=== PATIENT | female | born 1960 | race Caucasian/White ===

== ENCOUNTER 2019-05-17 12:13 | Emergency (ER) | payer BC ==
[~2019-05-17] VITALS: Ht 157.5 cm; Wt 132.2 kg
[2019-05-17] MEDS ORDERED: IRON27TA2 PO (12:48)
[2019-05-17] MEDS ORDERED: MULTCAP PO (12:48)
[2019-05-17] MEDS ORDERED: GNP250TA9 PO (12:48)
[2019-05-17 14:15] LABS: BASO % 0.6 % (0.0-1.0); EOS # 0.2 10^3/uL (0.0-0.5); EOS % 3.4 % (0.0-3.0); HEMATOCRIT 40.2 % (36.0-47.0); HEMOGLOBIN 12.7 g/dl (12.0-15.5); LYMPH # 1.5 10^3/uL (1.5-5.0); LYMPH % 21.8 % (24.0-44.0); MEAN CORPUSCULAR HEMOGLOBIN 28.8 pg (27.0-33.0); MEAN CORPUSCULAR HGB CONC 31.6 g/dl (32.0-36.5); MEAN CORPUSCULAR VOLUME 91.2 fl (80.0-96.0); MONO # 0.4 10^3/uL (0.0-0.8); MONO % 5.7 % (0.0-5.0); NEUTROPHILS # 4.6 10^3/uL (1.5-8.5); NEUTROPHILS % 68.4 % (36.0-66.0); PLATELET COUNT, AUTOMATED 298 10^3/uL (150-450); RED BLOOD COUNT 4.41 10^6/uL (4.00-5.40); WHITE BLOOD COUNT 6.7 10^3/uL (4.0-10.0)
[2019-05-17 14:23] LABS: ALBUMIN 3.2 GM/DL (3.2-5.2); ALT/SGPT 21 U/L (12-78); BILIRUBIN,DIRECT 0.1 MG/DL (0.0-0.2); BILIRUBIN,TOTAL 0.6 MG/DL (0.2-1.0); BLOOD UREA NITROGEN 20 MG/DL (7-18); C REACTIVE PROTEIN QUANTITATIV 4.32 MG/DL (0.00-0.30); CALCIUM LEVEL 8.1 MG/DL (8.5-10.1); CARBON DIOXIDE LEVEL 29 MEQ/L (21-32); CHLORIDE LEVEL 107 MEQ/L (98-107); CK-MB VALUE MASS 1.8 NG/ML (<3.6); CPK CREATINE PHOSPHOKINASE 44 U/L (26-192); CREATININE FOR GFR 0.75 MG/DL (0.55-1.30); GLOMERULAR FILTRATION RATE > 60.0 (>51); GLUCOSE, FASTING 88 MG/DL (70-100); MB/CK RELATIVE INDEX 4.09 (< OR =4); NT-PRO BNP 85 PG/ML (<125); POTASSIUM SERUM 3.9 MEQ/L (3.5-5.1); SODIUM LEVEL 140 MEQ/L (136-145); TOTAL PROTEIN 7.4 GM/DL (6.4-8.2); TROPONIN I < 0.02 NG/ML (< 0.10)
[2019-05-17 14:51] LABS: ERYTHROCYTE SEDIMENTATION RATE 52 mm/hr (0-30)
[2019-05-17 15:45] VITALS: BP 189/95
--- NOTE | 2019-05-17 15:57 | REP ---
Duplex extremity venous ultrasound: Bilateral lower extremity. History: Rule out DVT. Findings: Exam quality was somewhat inhibited by patient body habitus. The deep veins are anechoic and fully compressible from the groin to the popliteal fossa in the left and right lower extremity. Color flow imaging is homogeneous. Spectral Doppler interrogation demonstrates intact respiratory variation in flow and normal manual augmentation of flow. There is no evidence of deep vein thrombosis. Impression: Negative bilateral lower extremity duplex venous ultrasound. No evidence of deep vein thrombosis. Electronically Signed by Jacky Wu MD 05/17/2019 03:49 P
[2019-05-17] MEDS ORDERED: BACT800T5 PO (16:27)
[2019-05-17] MEDS ORDERED: LASI20TA3 PO (16:27)
== END 2019-05-17 16:35 | disposition home or self-care (01) ==
LOC: M ED 12:13
DX: L03.115 Cellulitis of right lower limb (principal); L03.116 Cellulitis of left lower limb; R60.0 Localized edema

== ENCOUNTER 2019-07-31 17:36 | Observation (INO) | payer BC ==
[~2019-07-31] VITALS: Ht 157.5 cm; Wt 133.7 kg
[~2019-07-31 17:36] MED LIST: BACT800T5 PO; GNP250TA9 PO; IRON27TA2 PO; LASI20TA3 PO; MULTCAP PO
[2019-07-31] MEDS ORDERED: NS 1,000 ML IV ONE (18:15)
[2019-07-31] MEDS ORDERED: CEFTAROLINE FOSAMIL 600 MG in D5W MINI-BAG PLUS 50 ML IV ONE (18:30)
[2019-07-31 18:45] LABS: BASO % 0.5 % (0.0-1.0); EOS # 0.1 10^3/uL (0.0-0.5); EOS % 1.5 % (0.0-3.0); HEMATOCRIT 39.1 % (36.0-47.0); HEMOGLOBIN 12.1 g/dl (12.0-15.5); LYMPH # 1.8 10^3/uL (1.5-5.0); MEAN CORPUSCULAR HEMOGLOBIN 27.8 pg (27.0-33.0); MEAN CORPUSCULAR HGB CONC 30.9 g/dl (32.0-36.5); MEAN CORPUSCULAR VOLUME 89.9 fl (80.0-96.0); MONO # 0.5 10^3/uL (0.0-0.8); MONO % 5.7 % (0.0-5.0); NEUTROPHILS # 6.3 10^3/uL (1.5-8.5); PLATELET COUNT, AUTOMATED 397 10^3/uL (150-450); RED BLOOD COUNT 4.35 10^6/uL (4.00-5.40); WHITE BLOOD COUNT 8.8 10^3/uL (4.0-10.0)
[2019-07-31] MEDS ORDERED: ALEV220T22 PO (18:52)
[2019-07-31] MEDS ORDERED: FERR325T82 PO (18:52)
[2019-07-31] MEDS ORDERED: FURO20TA2 PO (18:52)
[2019-07-31 18:56] LABS: INR 1.13; PROTHROMBIN TIME 14.2 SECONDS (11.8-14.0)
[2019-07-31 19:05] LABS: ALBUMIN 2.8 GM/DL (3.2-5.2); ALT/SGPT 27 U/L (12-78); BILIRUBIN,DIRECT < 0.1 MG/DL (0.0-0.2); BILIRUBIN,TOTAL 0.5 MG/DL (0.2-1.0); BLOOD UREA NITROGEN 28 MG/DL (7-18); C REACTIVE PROTEIN QUANTITATIV 6.21 MG/DL (0.00-0.30); CALCIUM LEVEL 8.5 MG/DL (8.5-10.1); CARBON DIOXIDE LEVEL 27 MEQ/L (21-32); CHLORIDE LEVEL 104 MEQ/L (98-107); CREATININE FOR GFR 0.78 MG/DL (0.55-1.30); GLOMERULAR FILTRATION RATE > 60.0 (>51); GLUCOSE, FASTING 106 MG/DL (70-100); POTASSIUM SERUM 4.9 MEQ/L (3.5-5.1); SODIUM LEVEL 138 MEQ/L (136-145); TOTAL PROTEIN 7.6 GM/DL (6.4-8.2)
--- NOTE | 2019-07-31 20:13 | REPVR ---
PROCEDURE INFORMATION: Exam: US Duplex Lower Extremity Veins Exam date and time: 07/31/2019 8:07 PM Age: 59 years old Clinical indication: Edema, localized; Lower extremity, bilateral; Additional info: R/O dvt TECHNIQUE: Imaging protocol: Real-time duplex ultrasound of the Lower Extremities with 2-D donaldson scale, color Doppler flow and spectral waveform analysis with image documentation. Complete exam focused on the bilateral lower extremity veins. COMPARISON: US Duplex, Ext LOWER veins, bilat 05/17/2019 3:19 PM FINDINGS: Right deep veins: Unremarkable. The common femoral, femoral, proximal profunda femoral and popliteal veins are patent without thrombus. Normal Doppler waveforms. Normal compressibility and/or augmentation response. Right superficial veins: Saphenofemoral junction is patent without thrombus. Left deep veins: Unremarkable. The common femoral, femoral, proximal profunda femoral and popliteal veins are patent without thrombus. Normal Doppler waveforms. Normal compressibility and/or augmentation response. Left superficial veins: Saphenofemoral junction is patent without thrombus. Soft tissues: Large left inguinal lymph node measures 4 x 1.5 x 3.1 cm demonstrating a normal fatty hilum consistent with an inflammatory benign lymph node. Marked bilateral lower leg edema. IMPRESSION: 1. No acute findings. No evidence of deep vein thrombosis. 2. Inflammatory lymph nodes left inguinal region. 3. Bilateral marked lower leg edema. Electronically signed by: Gil Dunlap On 07/31/2019 20:13:20 PM
[2019-07-31 20:20] LABS: ERYTHROCYTE SEDIMENTATION RATE 68 mm/hr (0-30)
--- NOTE | 2019-07-31 20:56 | HPEPDOC ---
[facility] Medical History & Physical Date of Admission Jul 31, 2019 Date of Service: Jul 31, 2019 Other Provider NO PCP Attending Physician: ALANIS SHEPHERD MD History and Physical TIME OF SERVICE: 10 PM CHIEF COMPLAINT: Leg pain HISTORY OF PRESENT ILLNESS: This is a 59-year-old female who presents with complaints of left lower extremity 4 /10 "tender" left leg pain that extends from the knee to the shins. She has had multiple episodes of bilateral lower extremity cellulitis since May. Despite taking several courses of antibiotics the left lower extremity swelling has not completely resolved. She completed her last course of antibiotics about a week ago, but has noticed worsening redness and swelling of the left lower extremity with weeping from the skin. Denies having nausea, vomiting, fever or chills. Does not have a PCP. REVIEW OF SYSTEMS: 12 point review of systems negative except as listed in HPI PAST MEDICAL/ SURGICAL HISTORY: She denies any prior medical history She had a resection of a cyst on her back several years ago SOCIAL HISTORY: She does not smoke FAMILY HISTORY: Diabetes ALLERGIES: Please see below. HOME MEDICATIONS: Please see below. PHYSICAL EXAMINATION: VITAL SIGNS: Please see below. GEN: Obese/ well developed/ NAD INTEGUMENT: Left lower extremity has redness and thickening of the subcutaneous skin extending from the posterior aspect of the left upper leg all the way down to the ankles. There are also areas containing yellow crusted discharge. The right lower extremity also has redness, and swelling of the subcutaneous skin from the mid cutler to the ankle. HEENT: NCAT / mucus membranes moist and pink CVS: RRR/NMRG LUNGS: lungs are clear to auscultation bilaterally on room air MSK/EXTREMITIES: range of motion . The left ankle is limited due to swelling and pain NEURO: CN 2-12 are grossly intact / speech is not dysarthric PSYCH: alert and oriented to person place and time/ able to understand and follow all commands LABORATORY DATA: See below. IMAGING: Bilateral ultrasound is negative for DVT MICROBIOLOGY: Please see below. ASSESSMENT: Ms. Lloyd is a 59-year-old female the past medical history of morbid obesity will be admitted for management of bilateral lower extremity redness, pain & swelling possibly due to cellulitis. PLAN: 1. BLE Cellulitis ? Predisposing factors is morbid obesity. The pain, redness and swelling is worse at the left lower extremity than the right. The duplex negative for DVT. The ESR and CRP are elevated. The only SIRS criterial she had was a HR of 104 She received Ceftaroline in the ER ALT-70 Score = 1 point = reassess / >83.3% likelihood of pseudocellulitis Plan: Admit to medical floor/fall precautions / elevate legs / acetaminophen for pain / wound care / PT eval to determine if it is still safe for her to continue to use her cane and walker to ambulate / since her WBC # is wnl and her ALT-70 Score points towards a diagnosis of pseudocellulitis, we will switch to PO Bactrim in the morning / it is unusual to have bilateral lower extremity cellulitis, but the skin on the left leg is weeping and ozzing pus and appears to be infected, there is a possibility that she may also have venous insufficiency therefore the day time team may consider consulting dermatology in the morning 2. Morbid Obesity BMI 61.4 Plan: She has a PCP she can follow-up with them for the STOP BANG questionnaire, oven attendant consult & referral for Bariatric Surgeon / recommend cardiovascular exercise for 40 min 4-5 days a week DVT PROPHYLAXIS: Lovenox DISPOSITION: Likely home after less than 2 midnight stay Vital Signs Vital Signs Date Time Temp Pulse Resp B/P (MAP) Pulse Ox O2 Delivery O2 Flow Rate FiO2 07/31/19 18:33 95 20 122/76 (91) 100 07/31/19 17:37 98.0 Room Air Laboratory Data Labs 24H Laboratory Tests 2 07/31/19 18:20: Lactic Acid Level 0.7 07/31/19 18:21: Immature Granulocyte % (Auto) 0.3, Neutrophils (%) (Auto) 72.0H, Lymphocytes (%) (Auto) 20.0L, Monocytes (%) (Auto) 5.7H, Eosinophils (%) (Auto) 1.5, Basophils (%) (Auto) 0.5, Neutrophils # (Auto) 6.3, Lymphocytes # (Auto) 1.8, Monocytes # (Auto) 0.5, Eosinophils # (Auto) 0.1, Basophils # (Auto) 0.0, Nucleated Red Blood Cells % (auto) 0.0, Erythrocyte Sedimentation Rate 68H, Prothrombin Time 14.2H, Prothromb Time International Ratio 1.13, Anion Gap 7L, Glomerular Filtration Rate > 60.0, Calcium Level 8.5, Total Bilirubin 0.5, Direct Bilirubin < 0.1, Aspartate Amino Transf (AST/SGOT) 27, Alanine Aminotransferase (ALT/SGPT) 27, Alkaline Phosphatase 124H, C-Reactive Protein, Quantitative 6.21H, Total Protein 7.6, Albumin 2.8L, Albumin/Globulin Ratio 0.58L CBC/BMP Laboratory Tests 07/31/19 18:21 Microbiology Microbiology 07/31/19 Gram Stain, Received Pending 07/31/19 Wound Culture, Received Pending 07/31/19 Blood Culture, Received Pending 07/31/19 Blood Culture, Received Pending Home Medications Scheduled Ferrous Sulfate (Iron) 325 Mg Tablet, 325 MG PO DAILY Furosemide (Furosemide) 20 Mg Tablet, 20 MG PO DAILY Magnesium Oxide (Magnesium) 250 Mg Tablet, 250 MG PO DAILY Multivitamin (Multivitamins) 1 Each Capsule, 1 CAP PO DAILY Scheduled PRN Naproxen Sodium (Aleve) 220 Mg Tablet, 220 MG PO BID PRN for PAIN Allergies Coded Allergies: No Known Allergies (Unverified , 05/17/19) A-FIB/CHADSVASC A-FIB History Current/History of A-Fib/PAF?: No Current PO Anticoag Therapy: No ALANIS SHEPHERD MD Jul 31, 2019 20:56
[2019-07-31 21:48] VITALS: BP 175/76
[2019-07-31] MEDS ORDERED: ACETAMINOPHEN 650MG ER TAB (TYLENOL ARTHRITIS) PO PRN (22:15)
[2019-08-01 06:00] VITALS: BP 161/78
[2019-08-01] MEDS ORDERED: ENOXAPARIN 40 MG/0.4 ML SYRINGE (J1650) SC SCH (09:00)
[2019-08-01] MEDS ORDERED: BACTRIM 160MG/800MG DS TAB PO SCH (09:00)
[2019-08-01] MEDS ORDERED: SULF1TAB93 PO (10:27)
--- NOTE | 2019-08-01 11:43 | DS.PDOC ---
Discharge Summary General Date of Admission Jul 31, 2019 at 17:37 Date of Discharge August 01, 2019 Attending Physician: MARICHUY HARRY MD Discharge Summary PROCEDURES PERFORMED DURING STAY: [None]. ADMITTING DIAGNOSES: 1. Lower extremity pain DISCHARGE DIAGNOSES: 1. Chronic venous stasis of lower extremities and resulting ulcerations COMPLICATIONS/CHIEF COMPLAINT: Bilateral Lower Extremity Edema. HISTORY OF PRESENT ILLNESS: This is a 59-year-old female who presents with complaints of left lower extremity 4 /10 "tender" left leg pain that extends from the knee to the shins. She has had multiple episodes of bilateral lower extremity cellulitis since May. Despite taking several courses of antibiotics the left lower extremity swelling has not completely resolved. She completed her last course of antibiotics about a week ago, but has noticed worsening redness and swelling of the left lower extremity with weeping from the skin. Denies having nausea, vomiting, fever or chills. Does not have a PCP. HOSPITAL COURSE: Patient was admitted and worked up for possible bilateral cellulitis given pain and erythema in lower extremities prompting several recent visits to urgent care. She underwent duplex ultrasound of bilateral lower extremities which was found to be normal with no evidence of DVT. She was started on oral Bactrim for empiric cellulitis treatment. The following morning she reported only minimal improvement in lower extremity pain. She was advised that she will need to establish with a PCP and will be referred to wound care clinic. She will be sent home on 14 days of oral Bactrim and and wound care supplies to wrap her legs herself until she can be seen by wound care clinic. DISCHARGE MEDICATIONS: Please see below. ALLERGIES: Please see below. PHYSICAL EXAMINATION ON DISCHARGE: VITAL SIGNS: Please see below. GENERAL APPEARANCE: morbidly obese, Laying in bed, appears stated age, no acute distress, calm, cooperative HEENT: EOMI, PERRLA, neck is supple with no thyromegaly or lymphadenopathy RESPIRATORY: Lungs are clear to auscultation bilaterally with no adventitious breath sounds appreciated CARDIOVASCULAR: no JVD, RRR,no murmurs/rubs/gallops ABDOMEN: Soft, nontender to palpation in all four quadrants, no masses/organomegaly EXTREMITIES: R lower extremity has evidence of venous stasis with several small ulcerations on the anterior and posterior leg. L lower extremity is wrapped in gauze that is completely saturated in extracellular fluid and is malodorous NEUROLOGICAL: No obvious focal deficits PSYCHIATRIC: normal mood/affect Skin: No rashes or ulcers. LN: No significant cervical or inguinal lymphadenopathy LABORATORY DATA: Please see below. IMAGING: DUPLEX US BILATERAL LE VEINS (07/31/19): IMPRESSION: 1. No acute findings. No evidence of deep vein thrombosis. 2. Inflammatory lymph nodes left inguinal region. 3. Bilateral marked lower leg edema. PROGNOSIS: fair ACTIVITY: [As tolerated]. DIET: low fat diet DISCHARGE PLAN: Home with follow up in GME clinic and Wound Care clinic DISPOSITION: . DISCHARGE INSTRUCTIONS: 1. Please call GME clinic and establish with PCP within 7 days 2. Please call wound care clinic and establish within 7 days 3. Until these appointments can be made please change wound dressing daily and wrap legs tightly 4. Return to the ER if you experience any problems ITEMS TO FOLLOWUP ON ON OUTPATIENT: 1. none DISCHARGE CONDITION: [Stable]. TIME SPENT ON DISCHARGE: Greater than 30 minutes. Vital Signs/I&Os Vital Signs Date Time Temp Pulse Resp B/P (MAP) Pulse Ox O2 Delivery O2 Flow Rate FiO2 08/01/19 06:00 98.2 92 19 161/78 (105) 97 Room Air I&O- Last 24 Hours up to 6 AM 08/01/19 05:59 Intake Total 750 ml Output Total 200 ml Balance 550 ml Laboratory Data Labs 24H Laboratory Tests 2 07/31/19 18:20: Lactic Acid Level 0.7 07/31/19 18:21: Immature Granulocyte % (Auto) 0.3, Neutrophils (%) (Auto) 72.0H, Lymphocytes (%) (Auto) 20.0L, Monocytes (%) (Auto) 5.7H, Eosinophils (%) (Auto) 1.5, Basophils (%) (Auto) 0.5, Neutrophils # (Auto) 6.3, Lymphocytes # (Auto) 1.8, Monocytes # (Auto) 0.5, Eosinophils # (Auto) 0.1, Basophils # (Auto) 0.0, Nucleated Red Blood Cells % (auto) 0.0, Erythrocyte Sedimentation Rate 68H, Prothrombin Time 14.2H, Prothromb Time International Ratio 1.13, Anion Gap 7L, Glomerular Filtration Rate > 60.0, Calcium Level 8.5, Total Bilirubin 0.5, Direct Bilirubin < 0.1, Aspartate Amino Transf (AST/SGOT) 27, Alanine Aminotransferase (ALT/SGPT) 27, Alkaline Phosphatase 124H, C-Reactive Protein, Quantitative 6.21H, Total Protein 7.6, Albumin 2.8L, Albumin/Globulin Ratio 0.58L 08/01/19 06:28: Urine Color YELLOW, Urine Appearance CLEAR, Urine pH 5.0, Urine Specific [place] 1.026, Urine Protein NEGATIVE, Urine Glucose (UA) NEGATIVE, Urine Ketones NEGATIVE, Urine Blood NEGATIVE, Urine Nitrite NEGATIVE, Urine Bilirubin NEGATIVE, Urine Urobilinogen 0.2, Urine Leukocyte Esterase NEGATIVE, Urine WBC (Auto) 1, Urine RBC (Auto) 1, Urine Hyaline Casts (Auto) 0, Urine Bacteria (Auto) NEGATIVE, Urine Squamous Epithelial Cells 2, Urine Mucus (Auto) SMALL, Urine Sperm (Auto) CBC/BMP Laboratory Tests 07/31/19 18:21 Microbiology Microbiology 07/31/19 Gram Stain - Final, Resulted 07/31/19 Wound Culture - Preliminary, Resulted Staphylococcus Aureus 07/31/19 Blood Culture, Received Pending 07/31/19 Blood Culture, Received Pending Discharge Medications Scheduled Ferrous Sulfate (Iron) 325 Mg Tablet, 325 MG PO DAILY, (Reported) Furosemide (Furosemide) 20 Mg Tablet, 20 MG PO DAILY, (Reported) Magnesium Oxide (Magnesium) 250 Mg Tablet, 250 MG PO DAILY, (Reported) Multivitamin (Multivitamins) 1 Each Capsule, 1 CAP PO DAILY, (Reported) Sulfamethoxazole/Trimethoprim (Sulfamethoxazole-Tmp Ds Tablet) 1 Each Tablet, 2 TAB PO Q12H Scheduled PRN Naproxen Sodium (Aleve) 220 Mg Tablet, 220 MG PO BID PRN for PAIN, (Reported) Allergies Coded Allergies: No Known Allergies (Unverified , 05/17/19) GME ATTESTATION GME ATTESTATION My faculty preceptor for this patient encounter was physically present during the encounter and was fully available. All aspects of the patient interview, examination, medical decision making process, and medical care plan development were reviewed and approved by the faculty preceptor. The faculty preceptor is aware and concurs with the plan as stated in the body of this note and will attest to such by his/her cosignature. ATTENDING NOTE I, aMrichuy Harry, have independently examined this patient and performed my own physical exam, as well as reviewed the documentation and edited where necessary. I have discussed in detail with the resident / student the findings and plan of treatment as documented by the resident / student and edited their note. I agree with their findings and treatment plan and have edited their documentation. I will continue to follow the patient during this hospital stay. Time spend on discharge 28 minutes CHANDANA BAJWA MD Aug 01, 2019 11:43 MARICHUY HARRY MD Aug 01, 2019 14:14
== END 2019-08-01 14:01 | disposition home or self-care (01) ==
LOC: M ED 17:36 → M ED INP 17:37 → ENRESERV 21:21 → M MSPAV 21:48
PROVIDERS: ADMIT Internal Medicine; ATTEND Internal Medicine
DX: I87.8 Other specified disorders of veins (principal); L97.221 Non-pressure chronic ulcer of left calf limited to breakdown of skin; L04.3 Acute lymphadenitis of lower limb; R60.0 Localized edema; E66.01 Morbid (severe) obesity due to excess calories; Z68.44 Body mass index [BMI] 60.0-69.9, adult; Z87.2 Personal history of diseases of the skin and subcutaneous tissue; Z79.899 Other long term (current) drug therapy; Z79.2 Long term (current) use of antibiotics
CPT/HCPCS: 36415; 80048; 80076; 81001; 83605; 85025; 85610; 85652; 86140; 87040; 87070; 87077; 87186; 87205; 93970; 94760; 96365; 96366; 96372; 97161; 97530; 99285; J0712; J1650

== ENCOUNTER → 2019-08-21 | Outpatient (CLI) | payer BC ==
[~2019-08-21] MED LIST changes: +ALEV220T22 PO; +FERR325T82 PO; +FURO20TA2 PO; +SULF1TAB93 PO
[2019-08-21 18:05] LABS: HEMOGLOBIN A1c 5.7 %
== END ==
LOC: M PLALAB 14:42
PROVIDERS: ATTEND Hospitalist
DX: Z13.1 Encounter for screening for diabetes mellitus (principal)

== ENCOUNTER → 2019-08-29 | Outpatient (CLI) | payer BC ==
[~2019-08-29] MED LIST changes: +GASTROGRAFIN SOLUTION 30ML (Q9963) As Ordered ONE; +ISOVUE-370 76% 100ML VIAL (Q9967) As Ordered ONE
--- NOTE | 2019-08-30 07:10 | REP ---
Clinical: Adenopathy. Technique: Axial contrast enhanced images from the lung bases to the pubic symphysis using oral (per protocol) and 100 ml Isovue 370 intravenous contrast material with coronal and sagittal re-formations. Comparison: None. Findings: Lung bases are clear. Visualized heart and pericardium normal. Liver, spleen, pancreas, gallbladder, bilateral adrenal glands and kidneys are normal. The enteric system is without obstruction or acute inflammatory process. Normal terminal ileum and appendix identified in the right lower quadrant. Scattered sigmoid diverticula noted without acute diverticulitis. Pelvis demonstrates normal bladder and age-appropriate uterus/adnexa. Periaortic/retroperitoneal lymph nodes measure up to 15 mm. Multiple fatty lesions within the pelvis demonstrating thin surrounding borders along the bilateral pelvic sidewalls measure roughly up to 3.5 cm. Findings may represent necrotic lymph nodes or multiple small retroperitoneal lipomas. No prior examinations are available for comparison and correlation with history and physical examination is recommended. Impression: 1. Primarily fatty lesions within the pelvis measuring up to 3.5 cm as described above. Findings are nonspecific. Differential diagnosis would include necrotic lymph nodes as well as scattered pelvic retroperitoneal lipomas. No prior examinations are available for comparison. Electronically Signed by Desmond Odonnell MD 08/30/2019 07:03 A
== END ==
LOC: M RAD 14:45
PROVIDERS: ATTEND Hospitalist
DX: R59.9 Enlarged lymph nodes, unspecified (principal)
CPT/HCPCS: 74177; Q9963; Q9967

== ENCOUNTER → 2019-10-05 | Outpatient (CLI) | payer BC ==
[~2019-10-05] MED LIST changes: -GASTROGRAFIN SOLUTION 30ML (Q9963) As Ordered ONE; -ISOVUE-370 76% 100ML VIAL (Q9967) As Ordered ONE
[2019-10-05 09:35] LABS: CALCIUM LEVEL 8.6 MG/DL (8.5-10.1); CHOLESTEROL RISK RATIO 2.307 (<5); CREATININE FOR GFR 1.06 MG/DL (0.55-1.30); GLOMERULAR FILTRATION RATE 56.9 (>51); POTASSIUM SERUM 4.6 MEQ/L (3.5-5.1)
== END ==
LOC: M LAB 08:23
DX: R73.09 Other abnormal glucose (principal); I89.0 Lymphedema, not elsewhere classified

== ENCOUNTER 2019-10-29 13:20 | Outpatient (RCR) | payer BC | END 2019-10-30 | LOC: M PT 13:20 | PROVIDERS: ATTEND Surgery | DX: Z51.89 Encounter for other specified aftercare (principal); I89.0 Lymphedema, not elsewhere classified; T14.8XXA Other injury of unspecified body region, initial encounter; Y92.89 Other specified places as the place of occurrence of the external cause ==

== ENCOUNTER 2019-11-12 15:09 | Emergency (ER) | payer BC ==
[~2019-11-12] VITALS: Ht 157.5 cm; Wt 130.3 kg
[2019-11-12 15:10] VITALS: BP 155/68
[2019-11-12] MEDS ORDERED: NYST1POW9 TOP (15:46)
== END 2019-11-12 16:13 | disposition home or self-care (01) ==
LOC: M ED 15:09
DX: B37.89 Other sites of candidiasis (principal); S76.811A Strain of other specified muscles, fascia and tendons at thigh level, right thigh, initial encounter; X58.XXXA Exposure to other specified factors, initial encounter; Y92.89 Other specified places as the place of occurrence of the external cause; I89.0 Lymphedema, not elsewhere classified; Z79.899 Other long term (current) drug therapy

== ENCOUNTER 2019-11-28 09:32 | Outpatient (RCR) | payer BC ==
[~2019-11-28 09:32] MED LIST changes: +NYST1POW9 TOP
== END 2019-11-29 ==
LOC: M PT 09:32
PROVIDERS: ATTEND Surgery
DX: T14.8XXA Other injury of unspecified body region, initial encounter (principal)

== ENCOUNTER 2019-12-14 12:25 | Outpatient (RCR) | payer BC | END 2019-12-30 | LOC: M PT 12:25 | PROVIDERS: ATTEND Surgery | DX: Z51.89 Encounter for other specified aftercare (principal); T14.8XXA Other injury of unspecified body region, initial encounter ==

== ENCOUNTER → 2019-12-26 | Outpatient (CLI) | payer BC ==
--- NOTE | 2019-12-27 03:54 | REP ---
Clinical: Heel ulcer. Technique: Real time bourgeois scale and color Doppler evaluation of the left lower extremity arterial vasculature using linear high frequency transducer. Findings: The ankle to brachial index of the left lower extremity is 1.21. Bourgeois scale images demonstrate minimal atheromatous plaquing without evidence for stenosis or occlusion. Color Doppler interrogation demonstrates normal primarily triphasic wave patterns. PSV(cm/sec) LEFT Common femoral artery 180 cm/s Profunda femoris artery 97 cm/s Proximal superficial femoral artery 185 cm/s Mid superficial femoral artery 105 cm/s Distal superficial femoral artery 80 cm/s Popliteal artery 92 cm/s Proximal ERIC 35 cm/s Proximal BLOWING WEASAND 45 cm/s Distal BLOWING WEASAND 86 cm/s Distal ERIC 51 cm/s Impression: Mild atheromatous plaquing without stenosis or occlusion. Somewhat limited examination due to technical factors and body habitus. Electronically Signed by Desmond Odonnell MD 12/27/2019 03:45 A
== END ==
LOC: M RAD 15:02
PROVIDERS: ATTEND Physician Assistant
DX: I70.245 Atherosclerosis of native arteries of left leg with ulceration of other part of foot (principal)

== ENCOUNTER → 2021-05-06 | Outpatient (REF) | payer OTHER ==
[~2021-05-06] MED LIST changes: +BACTDSTA PO; -SULF1TAB93 PO
== END ==
LOC: M SFHCPLAZ 11:24
PROVIDERS: ATTEND Family Medicine
DX: I89.0 Lymphedema, not elsewhere classified (principal); S81.802A Unspecified open wound, left lower leg, initial encounter; W18.30XA Fall on same level, unspecified, initial encounter; Y92.009 Unspecified place in unspecified non-institutional (private) residence as the place of occurrence of the external cause

== ENCOUNTER → 2021-06-19 | Outpatient (CLI) | payer OTHER ==
[2021-06-19 17:14] LABS: BASO % 0.3 % (0.0-1.0); EOS # 0.1 10^3/uL (0.0-0.5); EOS % 1.2 % (0.0-3.0); HEMATOCRIT 40.2 % (36.0-47.0); HEMOGLOBIN 12.3 g/dl (12.0-15.5); LYMPH # 1.9 10^3/uL (1.5-5.0); LYMPH % 19.9 % (24.0-44.0); MEAN CORPUSCULAR HEMOGLOBIN 27.6 pg (27.0-33.0); MEAN CORPUSCULAR HGB CONC 30.6 g/dl (32.0-36.5); MEAN CORPUSCULAR VOLUME 90.3 fl (80.0-96.0); MONO # 0.5 10^3/uL (0.0-0.8); MONO % 5.6 % (2.0-8.0); NEUTROPHILS # 6.8 10^3/uL (1.5-8.5); NEUTROPHILS % 72.8 % (36.0-66.0); PLATELET COUNT, AUTOMATED 407 10^3/uL (150-450); RED BLOOD COUNT 4.45 10^6/uL (4.00-5.40); WHITE BLOOD COUNT 9.3 10^3/uL (4.0-10.0)
[2021-06-19 17:43] LABS: ALBUMIN 2.9 GM/DL (3.2-5.2); BILIRUBIN,TOTAL 0.2 MG/DL (0.2-1.0); C REACTIVE PROTEIN QUANTITATIV 3.32 MG/DL (0.00-0.30); CALCIUM LEVEL 9.1 MG/DL (8.5-10.1); CREATININE FOR GFR 1.01 MG/DL (0.55-1.30); GLOMERULAR FILTRATION RATE 59.7 (>51); HEMOGLOBIN A1c 5.1 %; POTASSIUM SERUM 4.1 MEQ/L (3.5-5.1); TOTAL PROTEIN 8.1 GM/DL (6.4-8.2)
== END ==
LOC: M PLALAB 15:39
PROVIDERS: ATTEND Student in an Organized Health Care Education/Training Program
DX: R73.03 Prediabetes (principal)

== ENCOUNTER → 2021-06-19 | Outpatient (CLI) | payer OTHER | LOC: M PLALAB 15:41 | PROVIDERS: ATTEND Student in an Organized Health Care Education/Training Program | DX: S81.802A Unspecified open wound, left lower leg, initial encounter (principal); W18.30XA Fall on same level, unspecified, initial encounter; Y92.009 Unspecified place in unspecified non-institutional (private) residence as the place of occurrence of the external cause; R60.0 Localized edema ==

== ENCOUNTER 2021-06-29 10:16 | Outpatient (RCR) | payer MEDICAID, OTHER | END 2021-06-30 | LOC: M PT 10:16 | PROVIDERS: ATTEND Surgery | DX: I87.312 Chronic venous hypertension (idiopathic) with ulcer of left lower extremity (principal) ==

== ENCOUNTER 2021-07-29 12:45 | Outpatient (RCR) | payer OTHER | END 2021-07-31 | LOC: M PT 12:45 | PROVIDERS: ATTEND Surgery | DX: I87.312 Chronic venous hypertension (idiopathic) with ulcer of left lower extremity (principal) ==

== ENCOUNTER 2021-08-12 12:23 | Outpatient (RCR) | payer OTHER | END 2021-08-31 | LOC: M PT 12:23 | PROVIDERS: ATTEND Surgery | DX: I87.312 Chronic venous hypertension (idiopathic) with ulcer of left lower extremity (principal) ==

== ENCOUNTER → 2021-10-23 | Outpatient (REF) | payer OTHER | LOC: M SFHCPLAZ 15:51 | PROVIDERS: ATTEND Family Medicine | DX: Z53.9 Procedure and treatment not carried out, unspecified reason (principal) ==

== ENCOUNTER → 2022-01-06 | Outpatient (CLI) | payer OTHER | LOC: M CARPUL 09:14 | PROVIDERS: ATTEND Student in an Organized Health Care Education/Training Program | DX: I89.0 Lymphedema, not elsewhere classified (principal) ==

== ENCOUNTER → 2022-01-06 | Outpatient (CLI) | payer OTHER | LOC: M PLALAB 08:21 | PROVIDERS: ATTEND Student in an Organized Health Care Education/Training Program | DX: R00.0 Tachycardia, unspecified (principal) ==